=== PATIENT | male | born 1930 | race Caucasian/White ===

== ENCOUNTER 2017-05-25 23:52 | Inpatient (IN) ==
[2017-05-26] MEDS ORDERED: 0.9 % Sodium Chloride 1,000 ML IVC ONE (00:17)
[2017-05-26] MEDS ORDERED: *HR* HYDROmorphone 2 MG/ML SYRINGE IVP ONE (00:17)
[2017-05-26] MEDS ORDERED: Ondansetron 4 MG/2 ML VIAL IVP ONE (00:17)
--- NOTE | 2017-05-26 00:19 | Emergency Department Note ---
Disposition Clinical Impression: Femoral neck fracture Qualifiers: Encounter type: initial encounter Fracture type: closed Laterality: right Qualified Code(s): S72.001A - Fracture of unspecified part of neck of right femur, initial encounter for closed fracture Disposition: Admitted As Inpatient Condition: Fair Instructions: Hip Fracture (ED) Referrals: Unassigned,Provider [Non-Partnered Physician] - Forms: ED Satisfaction Letter Time of Disposition: 03:19 Fall HPI - General Chief Complaint: ED Fall Stated Complaint: FELL Time Seen by Provider: 05/26/17 00:15 Source: EMS, other Mode of arrival: private vehicle Limitations: no limitations Nursing Notes Reviewed: Yes Vital Signs Reviewed: Yes - History of Present Illness HPI Narrative: 86-year-old male presents to the emergency department from the [facility] status post fall. Patient reportedly tripped and fell landing on his right hip and now is complaining of right hip pain. Patient does appear mildly altered, however has baseline dementia which is unchanged per EMS. They are very familiar with this patient. Patient's only complaint is of right hip pain. He denies any neck pain, head injury, chest pain, dizziness, lightheadedness, shortness of breath. His only known drug allergies to Haldol. He has no additional injuries or complaints. Pt Subjective Complaint: fall Onset (ago): Just [employer] Fall From: standing Fall Witnessed: yes Place Fall Occurred: [facility] Loss of Consciousness: none Prolonged Down Time?: no Symptoms Prior to Fall: none Context: tripped/slipped Location of injury: hip Location of injury - extremities: Right: hip Severity: severe Quality: aching Associated symptoms (after fall): Reports: denies - Related Data Home Medications Medication Instructions Recorded Confirmed Atorvastatin Calcium [Lipitor] 80 mg PO DAILY 05/04/15 05/18/15 CarBAMazepine [Carbatrol] 300 mg PO BID 05/04/15 05/18/15 Clopidogrel [Plavix] 75 mg PO DAILY 05/04/15 05/18/15 Clotrimazole 1 appl TP BID 05/04/15 05/18/15 Cyanocobalamin (B-12) 100 mcg PO DAILY 05/04/15 05/18/15 Docusate [Colace] 200 mg PO BID 05/04/15 05/18/15 Ferrous Gluconate 325 mg PO DAILY 05/04/15 05/18/15 Ibuprofen [Motrin] 600 mg PO Q6HR 05/04/15 05/18/15 Ipratropium/Albuterol Neb [Duoneb] 3 ml IH TID 05/04/15 05/18/15 Isosorbide MONOnitrate (24 HR) 30 mg PO DAILY 05/04/15 05/18/15 [Imdur] Metoprolol [Lopressor] 12.5 mg PO BID 05/04/15 05/18/15 Pantoprazole Sodium [Protonix] 20 mg PO DAILY 05/04/15 05/18/15 Sertraline HCl [Zoloft] 50 mg PO DAILY 05/04/15 05/18/15 Previous Rx's Medication Instructions Recorded Ipratropium/Albuterol Neb [Duoneb] 3 ml IH [id number] inhsol 05/08/15 Quetiapine Fumarate [Seroquel] 25 mg PO BID tablet 05/08/15 Quetiapine Fumarate [Seroquel] 25 mg PO BID #60 tablet 05/08/15 Magnesium Citrate [Citroma] 296 ml PO ONCE #1 solution 05/18/15 Allergies Allergy/AdvReac Type Severity Reaction Status Date / Time haloperidol Allergy Confusion Verified 05/07/15 15:31 All systems ED: reviewed and negative except as stated. Constitutional: Denies: fever, chills Cardiovascular: Denies: chest pain Respiratory: Denies: cough, dyspnea Gastrointestinal: Denies: abdominal pain, nausea, vomiting Musculoskeletal: Reports: arthralgia. Denies: back pain, neck pain, joint swelling Integumentary: Denies: rash, abrasion, lesions Neurological: Denies: headache Psychiatric: Denies: anxiety, depression, suicidal thoughts, homicidal thoughts Fall PMH - Past Medical History Medical history: Reports: COPD, CVA, DVT, dementia, diabetes, hyperlipidemia, hypertension, myocardial infarction, osteoporosis, other Surgical history: Reports: no surgical history Psychiatric history: Reports: anxiety, depression, other - Social History Smoking Status: Former smoker Alcohol use: Reports: none Drug use: Reports: none Physical Exam - General Limitations: altered mental status (Baseline dementia.) General appearance: alert - Head Head exam: atraumatic, normocephalic, normal inspection - Eye Eye exam: Present: normal appearance, PERRL - Neck Neck exam: Present: normal inspection, full ROM, trachea midline - Chest Chest inspection: Present: normal inspection, symmetric chest wall rise - Respiratory Respiratory exam: Present: normal lung sounds bilaterally. Absent: respiratory distress - Cardiovascular Cardiovascular exam: Present: regular rate, normal rhythm, normal heart sounds - Abdominal Exam Abdominal exam: Present: soft, Non-Tender, normal bowel sounds. Absent: distention, guarding, rebound, rigidity - Expanded Lower Extremity Exam Hip/Pelvis exam: Present: tenderness (With palpation of the right lateral and anterior hip. Neurovascularly intact distally.). Absent: internal rotation, shortening - Back Exam Back exam: Present: normal inspection, full ROM. Absent: tenderness, vertebral tenderness - Neurological Exam Neurological exam: Present: alert, oriented X3 - Psychiatric Psychiatric exam: Present: normal affect, normal mood - Skin Skin exam: Present: warm, dry, intact, normal color Course Course Narrative: Discussed the patient's case with Dr. Castro, he accepts the patient for admission and Orthopedic consultation. [id number] Vital Signs Temperature 98 F 05/25/17 23:55 Pulse Rate 66 05/25/17 23:55 Respiratory Rate 20 05/25/17 23:55 Blood Pressure 132/78 05/25/17 23:55 O2 Sat by Pulse Oximetry 95 05/25/17 23:55 Temperature 98 F 05/25/17 23:55 Pulse Rate 92 05/26/17 01:57 Respiratory Rate 15 05/26/17 01:57 Blood Pressure 97/72 05/26/17 01:57 O2 Sat by Pulse Oximetry 94 05/26/17 01:57 Oxygen Delivery Oxygen Delivery Nasal Cannula Fall - Lab Data Lab results reviewed: Yes I reviewed the patient's lab results. Result diagrams: 05/26/17 00:30 05/26/17 00:30 Lab Results 05/26/17 05/26/17 05/26/17 Range/Units 00:30 00:30 00:30 WBC 5.7 (4.3-11.1) K/mcL RBC 5.57 H (4.19-5.50) M/mcL Hgb 15.5 (12.9-16.9) g/dL Hct 47.7 (37.5-50.1) % MCV 85.6 (83.0-100.0) fL MCH 27.8 L (28.0-33.3) pg MCHC 32.5 (31.6-35.5) g/dL RDW 14.6 H (11.5-14.5) % Plt Count 156 (140-400) K/mcL MPV 9.9 (9.4-12.4) fL Immature Gran % 0.2 (0-4) % Seg Neutrophils % 67.5 % Lymphocytes % 17.8 % Monocytes % 10.5 % Eosinophils % 3.5 % Basophils % 0.5 % Neutrophils # 3.9 (1.6-8.9) K/mcL Lymphocytes # 1.0 (0.6-4.6) K/mcL Monocytes # 0.6 (0.0-1.3) K/mcL Eosinophils # 0.2 (0.0-0.6) K/mcL Basophils # 0.0 (0.0-0.2) K/mcL PT 10.1 (9.4-12.1) Seconds INR 0.9 APTT 25.3 L (26.0-36.0) Seconds Sodium 140 (136-145) mEq/L Potassium 4.1 (3.5-4.5) mEq/L Chloride 106 (98-109) mEq/L Carbon Dioxide 27 (19-29) mEq/L BUN 19 (8-26) mg/dL Creatinine 1.27 H (0.72-1.25) mg/dL Est GFR ( Amer) > 60 (> 60) Est GFR (Non-Af Amer) 54 L (> 60) BUN/Creatinine Ratio 15 (6-26) Glucose 141 H (70-99) mg/dL Calculated Osmolality 295 (280-300) Calcium 9.3 (8.6-10.8) mg/dL Total Bilirubin 0.3 (0.2-1.2) mg/dL AST 15 (5-34) Units/L ALT 16 (0-55) Units/L Alkaline Phosphatase 72 (38-126) Units/L Serum Total Protein 7.0 (6.0-8.3) g/dL Albumin 3.5 (3.5-5.0) g/dL Globulin 3.5 (2.4-3.5) g/dL Albumin/Globulin Ratio 1.0 L (1.1-2.2) Urine Color (Yellow) Urine Clarity (Clear) Urine pH (5.0-8.0) pH Units Ur Specific [place] (1.010-1.025) Urine Protein (Neg-Trace) mg/dL Urine Glucose (UA) (Normal) mg/dL Urine Ketones (Negative) mg/dL Urine Blood (Negative) Urine Nitrite (Negative) Urine Bilirubin (Negative) Urine Urobilinogen (Normal) mg/dL Ur Leukocyte Esterase (Negative) Ur Culture Indicated? (NO) 05/26/17 Range/Units 00:48 WBC (4.3-11.1) K/mcL RBC (4.19-5.50) M/mcL Hgb (12.9-16.9) g/dL Hct (37.5-50.1) % MCV (83.0-100.0) fL MCH (28.0-33.3) pg MCHC (31.6-35.5) g/dL RDW (11.5-14.5) % Plt Count (140-400) K/mcL MPV (9.4-12.4) fL Immature Gran % (0-4) % Seg Neutrophils % % Lymphocytes % % Monocytes % % Eosinophils % % Basophils % % Neutrophils # (1.6-8.9) K/mcL Lymphocytes # (0.6-4.6) K/mcL Monocytes # (0.0-1.3) K/mcL Eosinophils # (0.0-0.6) K/mcL Basophils # (0.0-0.2) K/mcL PT (9.4-12.1) Seconds INR APTT (26.0-36.0) Seconds Sodium (136-145) mEq/L Potassium (3.5-4.5) mEq/L Chloride (98-109) mEq/L Carbon Dioxide (19-29) mEq/L BUN (8-26) mg/dL Creatinine (0.72-1.25) mg/dL Est GFR ( Amer) (> 60) Est GFR (Non-Af Amer) (> 60) BUN/Creatinine Ratio (6-26) Glucose (70-99) mg/dL Calculated Osmolality (280-300) Calcium (8.6-10.8) mg/dL Total Bilirubin (0.2-1.2) mg/dL AST (5-34) Units/L ALT (0-55) Units/L Alkaline Phosphatase (38-126) Units/L Serum Total Protein (6.0-8.3) g/dL Albumin (3.5-5.0) g/dL Globulin (2.4-3.5) g/dL Albumin/Globulin Ratio (1.1-2.2) Urine Color Yellow (Yellow) Urine Clarity Clear (Clear) Urine pH 6.0 (5.0-8.0) pH Units Ur Specific [place] 1.019 (1.010-1.025) Urine Protein Negative (Neg-Trace) mg/dL Urine Glucose (UA) Normal (Normal) mg/dL Urine Ketones Negative (Negative) mg/dL Urine Blood Negative (Negative) Urine Nitrite Negative (Negative) Urine Bilirubin Negative (Negative) Urine Urobilinogen Normal (Normal) mg/dL Ur Leukocyte Esterase Negative (Negative) Ur Culture Indicated? NO (NO) - Radiology Data Radiology results reviewed: Yes I reviewed the patient's radiology results.
[2017-05-26 00:36] LABS: Eosinophils % 3.5 %; Hematocrit 47.7 % (37.5-50.1); Hemoglobin 15.5 g/dL (12.9-16.9); Immature Granulocytes % 0.2 % (0-4); Lymphocytes % 17.8 %; Mean Corpuscular HGB Conc 32.5 g/dL (31.6-35.5); Mean Corpuscular Hemoglobin 27.8 pg (28.0-33.3); Mean Corpuscular Volume 85.6 fL (83.0-100.0); Mean Platelet Volume 9.9 fL (9.4-12.4); Monocytes % 10.5 %; Platelet Count 156 K/mcL (140-400); Red Blood Count 5.57 M/mcL (4.19-5.50); Red Cell Distribution Width 14.6 % (11.5-14.5); Segmented Neutrophils % 67.5 %
[2017-05-26 00:37] LABS: Basophils % 0.5 %; Eosinophils # 0.2 K/mcL (0.0-0.6); Monocytes # 0.6 K/mcL (0.0-1.3); Neutrophils # 3.9 K/mcL (1.6-8.9)
[2017-05-26 00:43] LABS: INR 0.9; Prothrombin Time 10.1 Seconds (9.4-12.1)
[2017-05-26 00:46] LABS: Activated Partial Thrombo Time 25.3 Seconds (26.0-36.0)
[2017-05-26 00:52] LABS: Alanine Aminotransferase 16 Units/L (0-55); Albumin 3.5 g/dL (3.5-5.0); Alkaline Phosphatase 72 Units/L (38-126); Aspartate Amino Transferase 15 Units/L (5-34); BUN/Creatinine Ratio 15 (6-26); Bilirubin,Total 0.3 mg/dL (0.2-1.2); Blood Urea Nitrogen 19 mg/dL (8-26); Calcium 9.3 mg/dL (8.6-10.8); Carbon Dioxide 27 mEq/L (19-29); Chloride 106 mEq/L (98-109); Globulin 3.5 g/dL (2.4-3.5); Glucose 141 mg/dL (70-99); Osmolality,Calculated 295 (280-300); Potassium 4.1 mEq/L (3.5-4.5); Sodium 140 mEq/L (136-145); eGFR For African Americans > 60 (> 60); eGFR For Non-African Americans 54 (> 60)
[2017-05-26 00:58] LABS: Bilirubin,Urine Negative (Negative); Blood,Urine Negative (Negative); Clarity,Urine Clear (Clear); Color,Urine Yellow (Yellow); Glucose,Urine (UA) Normal (Normal); Ketones,Urine Negative (Negative); Leukocyte Esterase,Urine Negative (Negative); Nitrite,Urine Negative (Negative); Protein,Urine Negative (Neg-Trace); Specific Gravity,Urine 1.019 (1.010-1.025); Urobilinogen,Urine Normal (Normal)
--- NOTE | 2017-05-26 01:19 | Emergency Department Note ---
Disposition Clinical Impression: Femoral neck fracture Qualifiers: Encounter type: initial encounter Fracture type: closed Laterality: right Qualified Code(s): S72.001A - Fracture of unspecified part of neck of right femur, initial encounter for closed fracture Disposition: Admitted As Inpatient Condition: Good Referrals: Unassigned,Provider [Non-Partnered Physician] - Forms: ED Satisfaction Letter Time of Disposition: 02:42 General Adult HPI - General Chief complaint: ED Fall Stated complaint: FELL Time Seen by Provider: 05/26/17 00:15 Source: EMS, other - History of Present Illness Pain Scale: 8 - Related Data Home Medications Medication Instructions Recorded Confirmed Atorvastatin Calcium [Lipitor] 80 mg PO DAILY 05/04/15 05/18/15 CarBAMazepine [Carbatrol] 300 mg PO BID 05/04/15 05/18/15 Clopidogrel [Plavix] 75 mg PO DAILY 05/04/15 05/18/15 Clotrimazole 1 appl TP BID 05/04/15 05/18/15 Cyanocobalamin (B-12) 100 mcg PO DAILY 05/04/15 05/18/15 Docusate [Colace] 200 mg PO BID 05/04/15 05/18/15 Ferrous Gluconate 325 mg PO DAILY 05/04/15 05/18/15 Ibuprofen [Motrin] 600 mg PO Q6HR 05/04/15 05/18/15 Ipratropium/Albuterol Neb [Duoneb] 3 ml IH TID 05/04/15 05/18/15 Isosorbide MONOnitrate (24 HR) 30 mg PO DAILY 05/04/15 05/18/15 [Imdur] Metoprolol [Lopressor] 12.5 mg PO BID 05/04/15 05/18/15 Pantoprazole Sodium [Protonix] 20 mg PO DAILY 05/04/15 05/18/15 Sertraline HCl [Zoloft] 50 mg PO DAILY 05/04/15 05/18/15 Previous Rx's Medication Instructions Recorded Ipratropium/Albuterol Neb [Duoneb] 3 ml IH [id number] inhsol 05/08/15 Quetiapine Fumarate [Seroquel] 25 mg PO BID tablet 05/08/15 Quetiapine Fumarate [Seroquel] 25 mg PO BID #60 tablet 05/08/15 Magnesium Citrate [Citroma] 296 ml PO ONCE #1 solution 05/18/15 Allergies Allergy/AdvReac Type Severity Reaction Status Date / Time haloperidol Allergy Confusion Verified 05/07/15 15:31 Past Medical History - Past Medical History Medical history: Reports: COPD, CVA, DVT, dementia, diabetes, hyperlipidemia, hypertension, myocardial infarction, osteoporosis, other Surgical history: Reports: no surgical history Psychiatric history: Reports: anxiety, depression, other - Social History Smoking Status: Former smoker Smokeless Tobacco Status: No Alcohol use: Reports: none Drug use: Reports: none Physical Exam - General General appearance: alert Course Vital Signs Temperature 98 F 05/25/17 23:55 Pulse Rate 66 05/25/17 23:55 Respiratory Rate 20 05/25/17 23:55 Blood Pressure 132/78 05/25/17 23:55 O2 Sat by Pulse Oximetry 95 05/25/17 23:55 Temperature 98 F 05/25/17 23:55 Pulse Rate 92 05/26/17 01:57 Respiratory Rate 15 05/26/17 01:57 Blood Pressure 97/72 05/26/17 01:57 O2 Sat by Pulse Oximetry 94 05/26/17 01:57 Oxygen Delivery Oxygen Delivery Nasal Cannula Medical Decision Making - Lab Data Result diagrams: 05/26/17 00:30 05/26/17 00:30 Lab Results 05/26/17 05/26/17 05/26/17 Range/Units 00:30 00:30 00:30 WBC 5.7 (4.3-11.1) K/mcL RBC 5.57 H (4.19-5.50) M/mcL Hgb 15.5 (12.9-16.9) g/dL Hct 47.7 (37.5-50.1) % MCV 85.6 (83.0-100.0) fL MCH 27.8 L (28.0-33.3) pg MCHC 32.5 (31.6-35.5) g/dL RDW 14.6 H (11.5-14.5) % Plt Count 156 (140-400) K/mcL MPV 9.9 (9.4-12.4) fL Immature Gran % 0.2 (0-4) % Seg Neutrophils % 67.5 % Lymphocytes % 17.8 % Monocytes % 10.5 % Eosinophils % 3.5 % Basophils % 0.5 % Neutrophils # 3.9 (1.6-8.9) K/mcL Lymphocytes # 1.0 (0.6-4.6) K/mcL Monocytes # 0.6 (0.0-1.3) K/mcL Eosinophils # 0.2 (0.0-0.6) K/mcL Basophils # 0.0 (0.0-0.2) K/mcL PT 10.1 (9.4-12.1) Seconds INR 0.9 APTT 25.3 L (26.0-36.0) Seconds Sodium 140 (136-145) mEq/L Potassium 4.1 (3.5-4.5) mEq/L Chloride 106 (98-109) mEq/L Carbon Dioxide 27 (19-29) mEq/L BUN 19 (8-26) mg/dL Creatinine 1.27 H (0.72-1.25) mg/dL Est GFR ( Amer) > 60 (> 60) Est GFR (Non-Af Amer) 54 L (> 60) BUN/Creatinine Ratio 15 (6-26) Glucose 141 H (70-99) mg/dL Calculated Osmolality 295 (280-300) Calcium 9.3 (8.6-10.8) mg/dL Total Bilirubin 0.3 (0.2-1.2) mg/dL AST 15 (5-34) Units/L ALT 16 (0-55) Units/L Alkaline Phosphatase 72 (38-126) Units/L Serum Total Protein 7.0 (6.0-8.3) g/dL Albumin 3.5 (3.5-5.0) g/dL Globulin 3.5 (2.4-3.5) g/dL Albumin/Globulin Ratio 1.0 L (1.1-2.2) Urine Color (Yellow) Urine Clarity (Clear) Urine pH (5.0-8.0) pH Units Ur Specific [place] (1.010-1.025) Urine Protein (Neg-Trace) mg/dL Urine Glucose (UA) (Normal) mg/dL Urine Ketones (Negative) mg/dL Urine Blood (Negative) Urine Nitrite (Negative) Urine Bilirubin (Negative) Urine Urobilinogen (Normal) mg/dL Ur Leukocyte Esterase (Negative) Ur Culture Indicated? (NO) 05/26/17 Range/Units 00:48 WBC (4.3-11.1) K/mcL RBC (4.19-5.50) M/mcL Hgb (12.9-16.9) g/dL Hct (37.5-50.1) % MCV (83.0-100.0) fL MCH (28.0-33.3) pg MCHC (31.6-35.5) g/dL RDW (11.5-14.5) % Plt Count (140-400) K/mcL MPV (9.4-12.4) fL Immature Gran % (0-4) % Seg Neutrophils % % Lymphocytes % % Monocytes % % Eosinophils % % Basophils % % Neutrophils # (1.6-8.9) K/mcL Lymphocytes # (0.6-4.6) K/mcL Monocytes # (0.0-1.3) K/mcL Eosinophils # (0.0-0.6) K/mcL Basophils # (0.0-0.2) K/mcL PT (9.4-12.1) Seconds INR APTT (26.0-36.0) Seconds Sodium (136-145) mEq/L Potassium (3.5-4.5) mEq/L Chloride (98-109) mEq/L Carbon Dioxide (19-29) mEq/L BUN (8-26) mg/dL Creatinine (0.72-1.25) mg/dL Est GFR ( Amer) (> 60) Est GFR (Non-Af Amer) (> 60) BUN/Creatinine Ratio (6-26) Glucose (70-99) mg/dL Calculated Osmolality (280-300) Calcium (8.6-10.8) mg/dL Total Bilirubin (0.2-1.2) mg/dL AST (5-34) Units/L ALT (0-55) Units/L Alkaline Phosphatase (38-126) Units/L Serum Total Protein (6.0-8.3) g/dL Albumin (3.5-5.0) g/dL Globulin (2.4-3.5) g/dL Albumin/Globulin Ratio (1.1-2.2) Urine Color Yellow (Yellow) Urine Clarity Clear (Clear) Urine pH 6.0 (5.0-8.0) pH Units Ur Specific [place] 1.019 (1.010-1.025) Urine Protein Negative (Neg-Trace) mg/dL Urine Glucose (UA) Normal (Normal) mg/dL Urine Ketones Negative (Negative) mg/dL Urine Blood Negative (Negative) Urine Nitrite Negative (Negative) Urine Bilirubin Negative (Negative) Urine Urobilinogen Normal (Normal) mg/dL Ur Leukocyte Esterase Negative (Negative) Ur Culture Indicated? NO (NO) Attestation Statement - Attestation Attestation: For this encounter, I have reviewed the [employer] or PA documentation, treatment plan, and medical decision making; and I have had face to face time with this patient. 86 year old male from [facility] the [place], papa fell out of bed and possibly hit his head and has an obvisou fracture on right hip. We will image his hip and head and neck and likely admit to medicine with consult to ortho. neruovascualr intact at this time.
[2017-05-26] MEDS ORDERED: Ondansetron 4 MG/2 ML VIAL IVP PRN (05:21)
[2017-05-26] MEDS ORDERED: *HR* HYDROcodone/Acet 5/325 mg TABLET PO PRN (05:21)
[2017-05-26] MEDS ORDERED: Acetaminophen 325 MG TABLET PO PRN (05:21)
[2017-05-26] MEDS ORDERED: Naloxone 0.4 MG/ML INJ IVP PRN (05:21)
--- NOTE | 2017-05-26 05:31 | Internal Med History&Physical ---
<Pamela Salamanca - Last Filed: 05/26/17 05:37> Date of Encounter: 05/26/17 Time of Encounter: 04:30 Assessment and Plan (1) Femoral neck fracture Current visit: Yes Status: Acute - Right hip pain after a fall and right hip X-ray revealed acute right femoral neck fracture. - Prn pain medication for pain control. - NPO now. - Will consult orthopedic surgery and appreciate further evaluation and possible intervention. - Admit to hospital for close monitor, pain control and potential need of surgical intervention. Total time spent on admission: 40 minutes. Qualifiers: Encounter type: initial encounter Fracture type: closed Laterality: right Qualified Code(s): S72.001A - Fracture of unspecified part of neck of right femur, initial encounter for closed fracture (2) COPD (chronic obstructive pulmonary disease) Current visit: No Status: Chronic - Continue bronchodilator and supplemental oxygen. Qualifiers: COPD type: unspecified COPD Qualified Code(s): J44.9 - Chronic obstructive pulmonary disease, unspecified (3) Hypertension Current visit: Yes Status: Chronic - Will resume home dose antihypertensive regimen once med rec is confirmed. Qualifiers: Hypertension type: essential hypertension Qualified Code(s): I10 - Essential (primary) hypertension (4) Dementia Current visit: No Status: Chronic - Per EMS who are familiar with patient, patient was at his baseline dementia upon arrival to ED. Qualifiers: Dementia type: unspecified type Dementia behavioral disturbance: without behavioral disturbance Qualified Code(s): F03.90 - Unspecified dementia without behavioral disturbance (5) History of stroke Current visit: Yes Status: Chronic Internal Medicine - H&P: HPI Chief complaint: Right hip pain Admitted From: Emergency Dept Plans for Post Hospital Care: [facility] History of present illness: Mr. Mackey is a 86 year old male with PMH of COPD, HTN, history of stroke with legal blindness. Patient was sent from [place] [facility] for right hip pain after a fall from the bed. On the encounter, patient is hypersomnolent after receiving Dilaudid in ED and unable to answer any of my questions and no family member at bedside. Therefore much of history was obtained from review of medical record. Per ED note, patient only complained of right hip pain and denied any neck pain, head injury, chest pain, dizziness, lightheadedness, shortness of breath. Per EMS who are very familiar with patient, patient is at his baseline dementia. CT head and cervical spine found no acute abnormality. Right hip X-ray found acute right femoral neck fracture. Past Med Surg Social Fam HX - Past Medical History Source: old records reviewed Medical history: COPD, CVA, DVT, dementia, diabetes, hyperlipidemia, hypertension, myocardial infarction, osteoporosis, other Psychiatric history: anxiety, depression, other - Past Surgical History Surgical History: other (Open heart surgery, back surgery) - Social History Smoking Status: Former smoker Smokeless Tobacco Status: No Alcohol use: none Drug use: none Internal Medicine - H&P: Meds Atorvastatin Calcium [Lipitor] 80 mg PO DAILY 05/04/15 [History] CarBAMazepine [Carbatrol] 300 mg PO BID 05/04/15 [History] Clopidogrel [Plavix] 75 mg PO DAILY 05/04/15 [History] Clotrimazole 1 appl TP BID 05/04/15 [History] Cyanocobalamin (B-12) 100 mcg PO DAILY 05/04/15 [History] Docusate [Colace] 200 mg PO BID 05/04/15 [History] Ferrous Gluconate 325 mg PO DAILY 05/04/15 [History] Ibuprofen [Motrin] 600 mg PO Q6HR 05/04/15 [History] Ipratropium/Albuterol Neb [Duoneb] 3 ml IH TID 05/04/15 [History] Isosorbide MONOnitrate (24 HR) [Imdur] 30 mg PO DAILY 05/04/15 [History] Metoprolol [Lopressor] 12.5 mg PO BID 05/04/15 [History] Pantoprazole Sodium [Protonix] 20 mg PO DAILY 05/04/15 [History] Sertraline HCl [Zoloft] 50 mg PO DAILY 05/04/15 [History] Ipratropium/Albuterol Neb [Duoneb] 3 ml IH [id number] inhsol 05/08/15 [Rx] Quetiapine Fumarate [Seroquel] 25 mg PO BID tablet 05/08/15 [Rx] Quetiapine Fumarate [Seroquel] 25 mg PO BID #60 tablet 05/08/15 [Rx] Magnesium Citrate [Citroma] 296 ml PO ONCE #1 solution 05/18/15 [Rx] 3 Allergy/AdvReac Type Severity Reaction Status Date / Time haloperidol Allergy Confusion Verified 05/07/15 15:31 ROS unobtainable: due to mental status - Constitutional Vitals: Temp Pulse Resp BP Pulse Ox 98 F 99 18 115/101 90 05/25/17 23:55 05/26/17 04:53 05/26/17 04:53 05/26/17 04:53 05/26/17 04:53 General appearance: Present: A&O X 0, no acute distress Exam: Patient is hypersomnolent and unable to answer any questions appropriately. - Head Head exam: Present: atraumatic, normocephalic - ENT ENT exam: Present: mucous membranes dry - Neck Neck exam general surgery: Present: supple, trachea midline. Absent: lymphadenopathy - Respiratory Respiratory exam: Present: CTAB. Absent: accessory muscle use, rales, rhonchi, wheezes - Cardiovascular Cardiovascular exam: Present: RRR, +S1, +S2. Absent: diastolic murmur, gallop, rubs, systolic murmur - GI/Abdominal GI/Abdominal exam: Present: normal bowel sounds, soft, no peritoneal signs. Absent: distended, tenderness - Extremities Exam Extremities exam: Present: warm, radial pulses palpable and symmetrical. Absent : calf tenderness, cyanotic, pedal edema - Neurological Exam Neurological exam: Absent: pronater drift, facial droop Additional comments: Unable to full assess given patient is not answering questions nor following commands. - Skin Skin exam: Present: dry, intact, warm Internal Med - H&P Results - Labs CBC & Chem 7: 05/26/17 00:30 05/26/17 00:30 <Wang Castro - Last Filed: 05/26/17 08:00> Date of Encounter: 05/26/17 Internal Medicine - H&P: HPI History of present illness: Mr. Mackey is a 86 year old male All Systems PM: A 10-system review of systems was performed and is negative for pertinent findings except as documented above in the HPI. - Constitutional Vitals: Temp Pulse Resp BP Pulse Ox 98.6 F 98 24 135/65 98 05/26/17 07:08 05/26/17 07:08 05/26/17 07:08 05/26/17 07:08 05/26/17 07:08 Internal Med - H&P Results - Labs CBC & Chem 7: 08/25/17 00:30 05/26/17 00:30 - Attending Attestation I examined this patient and my medical decision-making was reviewed with the Resident Physician, Dr. Pamela Salamanca. I agree with the documented findings, disposition and treatment plan as described except to the extent set forth below. I have independently obtained history and examined the patient and my findings are summarized below: Patient cannot provide history due to advanced dementia He is in no acute distress occasionally moaning and groaning in pain. Heart is regular, lungs are clear. Right lower extremity is shortened and externally rotated X-ray of the hip reveals right femoral neck fracture Plan: We will admit the patient for acute right femoral neck fracture, we will provide pain control, DVT prophylaxis, consult orthopedics. The patient has multiple comorbidities and he has high risk for surgery, [facility] and therefore will consult palliative care to assess goals of care. He is at high risk for morbidity, mortality and complications due to need for surgery, poor mental status and treatment with IV controlled substances.
[2017-05-26] MEDS: *HR* Morphine 2 MG/ML SYRINGE IVP PRN ×4 (08:52→22:03)
--- NOTE | 2017-05-26 08:55 | Palliative - Consult Note ---
Date of Encounter: 05/26/17 Time of Encounter: 08:25 - Assessment and Plan (1) Dementia Current Visit: No Status: Chronic Assessment and plan: History of dementia, however he does eat 7 c level. Patient is still ambulatory still able to assist in some of his activities of daily living at this point in time. pLan per hospitalist team. Qualifiers: Dementia type: unspecified type Dementia behavioral disturbance: without behavioral disturbance Qualified Code(s): F03.90 - Unspecified dementia without behavioral disturbance (2) COPD (chronic obstructive pulmonary disease) Current Visit: No Status: Chronic Assessment and plan: Chronic, patient on oxygen and bronchodilator support. Plan per hospitalist team Qualifiers: COPD type: unspecified COPD Qualified Code(s): J44.9 - Chronic obstructive pulmonary disease, unspecified (3) Counseling regarding advanced care planning and goals of care Current Visit: No Status: Acute Assessment and plan: Patient's CODE STATUS is DNR comfort care this was established to being seen by palliative care, but confirmed on discussion with family. The patient does have a medical power of commercial attorney Shanti Jackman, and the paperwork is on the chart from the [facility], however Ms. Jackman has passed. prashanth Walker at [phone], is his daughter, the only child. And is his decision maker. He is awaiting talking to orthopedic surgery Ryer to making any full final decisions regarding fixing the hip. She did confirm the CODE STATUS she is here to have the hip evaluated by orthopedic surgery for Ms. Mackey to get their recommendations. (4) Femoral neck fracture Current Visit: Yes Status: Acute Assessment and plan: Right femoral neck fracture per radiology. Awaiting orthopedic consultation. Since daughter who is his medical decision maker is awaiting their recommendations. Regards to pain management I agree with using morphine there is no evidence that the patient has been on opioids start his current outpatient meds list. Therefore given his overall age and health, I would recommend staying with currently prescribed. The patient apparently does have a history of constipation, I will place him on some regimen as he is getting opioids at this time. Qualifiers: Encounter type: initial encounter Fracture type: closed Laterality: right Qualified Code(s): S72.001A - Fracture of unspecified part of neck of right femur, initial encounter for closed fracture Palliative-CN HPI - Data of Consult Patient: known to practice within the last 3 years Requesting Physician: Gabe Myaer MD [facility] - Consult Narrative Palliative Care/Comfort Measures: Palliative care History of present illness: Mr. Mackey is a 86 year old male With a history of COPD hypertension history of stroke legal blindness and dementia. He is a long-term resident at the [facility] and was transferred after right hip pain from a fall from the bed. He is unable to give any history, but the patient also has dementia currently at baseline. The history comes from the medical record and from discussion with the patient's daughter. As already noted the patient's a long-term resident at the [facility]. He is able to get up and get around, according to his daughter he has been falling more recently. He is able to assist with his own dressing although he requires assistance with this. We will go to the bathroom however this is becoming more and more troublesome and requiring more and more help with this pill able to at least feed himself to some degree. Oertli the patient is still somnolent from medication he was given in the emergency department and is not verbal. CC: Gabe Mayer MD Right hip pain, femoral neck fracture. Past Med Surg Social Fam HX - Past Medical History Medical history: COPD, CVA, DVT, dementia, diabetes, hyperlipidemia, hypertension, myocardial infarction, osteoporosis, other Psychiatric history: anxiety, depression, other - Past Surgical History Surgical History: other (Open heart surgery, back surgery) - Social History Smoking Status: Former smoker Smokeless Tobacco Status: No Alcohol use: none Drug use: none Medications and Allergies Atorvastatin Calcium [Lipitor] 80 mg PO DAILY 05/04/15 [History] CarBAMazepine [Carbatrol] 300 mg PO BID 05/04/15 [History] Clopidogrel [Plavix] 75 mg PO DAILY 05/04/15 [History] Clotrimazole 1 appl TP BID 05/04/15 [History] Cyanocobalamin (B-12) 100 mcg PO DAILY 05/04/15 [History] Docusate [Colace] 200 mg PO BID 05/04/15 [History] Ferrous Gluconate 325 mg PO DAILY 05/04/15 [History] Ibuprofen [Motrin] 600 mg PO Q6HR 05/04/15 [History] Ipratropium/Albuterol Neb [Duoneb] 3 ml IH TID 05/04/15 [History] Isosorbide MONOnitrate (24 HR) [Imdur] 30 mg PO DAILY 05/04/15 [History] Metoprolol [Lopressor] 12.5 mg PO BID 05/04/15 [History] Pantoprazole Sodium [Protonix] 20 mg PO DAILY 05/04/15 [History] Sertraline HCl [Zoloft] 50 mg PO DAILY 05/04/15 [History] Ipratropium/Albuterol Neb [Duoneb] 3 ml IH [id number] inhsol 05/08/15 [Rx] Quetiapine Fumarate [Seroquel] 25 mg PO BID tablet 05/08/15 [Rx] Quetiapine Fumarate [Seroquel] 25 mg PO BID #60 tablet 05/08/15 [Rx] Magnesium Citrate [Citroma] 296 ml PO ONCE #1 solution 05/18/15 [Rx] 3 Allergy/AdvReac Type Severity Reaction Status Date / Time haloperidol Allergy Confusion Verified 05/07/15 15:31 ROS unobtainable: due to mental status Palliative Care-Exam - Constitutional Vitals: Temp Pulse Resp BP Pulse Ox 98.6 F 98 24 135/65 98 05/26/17 07:08 05/26/17 07:08 05/26/17 07:08 05/26/17 07:08 05/26/17 07:08 General appearance: Present: no acute distress - Head Head Exam: Present: atraumatic, normal inspection - Eye Eye exam: Present: normal appearance - Respiratory Respiratory exam: Present: CTAB - Cardiovascular Cardiovascular exam: Present: RRR - GI/Abdominal Exam GI/Abdominal exam: Present: firm, normal bowel sounds. Absent: tenderness - Extremities Exam Extremities exam: Present: tenderness. Absent: normal inspection (Right leg is externally rotated and shortened) - Neurological Exam Neurological exam: Present: altered - Psychiatric Psychiatric exam: Absent: agitated, anxious - Skin Skin exam: Present: dry, warm Internal Medicine - CN: Reslt - Labs CBC & Chem 7: 05/26/17 00:30 05/26/17 00:30 - ABG Interpretation ABG results: PT/INR, D-dimer PT 10.1 Seconds (9.4-12.1) 05/26/17 00:30 Consult Discharge Plan - Plan [facility]errals: [facility],PCP [Primary Care Provider] - Palliative Quality Palliative Quality: Screen for Code Status: Yes, Screen for Goals of Care: Yes, Screen for Pain: Yes, If Pain Regimen Started, Initiate Bowel Regimen: Yes, Screen for Nausea/Vomitting: Yes Code Status: 05/26/17 05:21 Resuscitation Status: Active [RES] Routine Comment: Resuscitation Status: Full Code 05/26/17 08:01 DNR [Resuscitation Status: Active] [RES] Routine Comment: Resuscitation Status: DNR-Comfort Care
[2017-05-26] MEDS: Ipratropium/Albuterol Neb 3 ML IH SCH ×3 (09:44→22:23)
--- NOTE | 2017-05-26 14:07 | Event Note ---
Date of Encounter: 05/26/17 Time of Encounter: 09:50 Patient is currently very somnolent. Unable to answer any questions. Awaiting evaluation by orthopedics. Given his advanced age and dementia, palliative care has been consulted to discuss goals of care. Patient is DNR comfort care. We will await orthopedic evaluation and recommendations and discussed with family about further options. Continue supportive care and pain control with narcotic medications as needed.
[2017-05-26] MEDS ORDERED: *HR* Enoxaparin 30 MG/0.3 ML SYRINGE SQ SCH (18:00)
--- NOTE | 2017-05-26 18:36 | Orthopedic Consult Note ---
Date of Encounter: 05/26/17 Time of Encounter: 18:30 History of Present Illness Chief complaint: Right hip pain HPI: Mr. Mackey is a 86 year old male who reportedly fell at the [facility] where he is a permanent resident. The patient apparently sustained several falls recently. He does have a history of dementia. Patient is unable to give any information. Discussion has been with the patient's daughter who is next of kin. For complete history and physical data please refer to the formal medical chart. Orthopedic examination is markedly limited due to the patient's relatively uncooperative nature at this time. He does have pain with any attempts examining the right hip. I reviewed x-rays. These reveal a very low basicervical or more of an intertrochanteric type fracture of the right hip. There is varus angulation noted. This was read as a femoral neck fracture by radiology, I disagree with this interpretation as it has an impact on how the fractures treated. Impression: Intertrochanteric fracture right hip with varus angulation Plan: Had a extended discussion with the patient's family regarding the fracture and the treatment options. Basically this would be 3. The first would be nonoperative management which would require bed rest for some period of time with the possibility of the fracture displacing further and requiring surgical intervention at another date. The second would be to stabilize the fracture in 1 of 2 ways. First would be percutaneous screw fixation which should be a potentially weaker construct then the second surgical fixation which would be with an intramedullary nail. The third option would be some form of a hemiarthroplasty though this would require a revision type stem due to the extremely low location of the fracture. I do not recommend this due to the patient's potential for adverse effects postop. This would require some limitations but I am not sure the patient would be able to follow with this level of dementia. After much discussion we agreed upon proceeding with intramedullary nailing as both a palliative and as a definitive treatment. This will allow him to begin immediate ambulation with weightbearing as tolerated with limited limitations. We discussed procedure at length including the potential complications of bleeding, infection, blood clots, nerve injury, nonunion, avascular necrosis, and leg length or rotational deformities. The daughter who is the next of kin signed informed consent for the surgical procedure. There is no current DURABLE POWER OF ASSISTANT ASSOCIATE FULL PROFESSOR due to the of the previous DPOA. I have scheduled surgery for tomorrow when operating time is available. Thank you very much for allowing me to care for Mr. Mackey. Sincerely, Bandar Patel,DO Past Med Surg Social Fam HX - Past Medical History Medical history: COPD, CVA, DVT, dementia, diabetes, hyperlipidemia, hypertension, myocardial infarction, osteoporosis, other Psychiatric history: anxiety, depression, other - Past Surgical History Surgical History: other - Social History Smoking Status: Former smoker Smokeless Tobacco Status: No Alcohol use: none Drug use: none Medications and Allergies Atorvastatin Calcium [Lipitor] 80 mg PO DAILY 05/04/15 [History] CarBAMazepine [Carbatrol] 300 mg PO BID 05/04/15 [History] Clopidogrel [Plavix] 75 mg PO DAILY 05/04/15 [History] Clotrimazole 1 appl TP BID 05/04/15 [History] Cyanocobalamin (B-12) 100 mcg PO DAILY 05/04/15 [History] Docusate [Colace] 200 mg PO BID 05/04/15 [History] Ferrous Gluconate 325 mg PO DAILY 05/04/15 [History] Ibuprofen [Motrin] 600 mg PO Q6HR 05/04/15 [History] Ipratropium/Albuterol Neb [Duoneb] 3 ml IH TID 05/04/15 [History] Isosorbide MONOnitrate (24 HR) [Imdur] 30 mg PO DAILY 05/04/15 [History] Metoprolol [Lopressor] 12.5 mg PO BID 05/04/15 [History] Pantoprazole Sodium [Protonix] 20 mg PO DAILY 05/04/15 [History] Sertraline HCl [Zoloft] 50 mg PO DAILY 05/04/15 [History] Ipratropium/Albuterol Neb [Duoneb] 3 ml IH [id number] inhsol 05/08/15 [Rx] Quetiapine Fumarate [Seroquel] 25 mg PO BID tablet 05/08/15 [Rx] Quetiapine Fumarate [Seroquel] 25 mg PO BID #60 tablet 05/08/15 [Rx] Magnesium Citrate [Citroma] 296 ml PO ONCE #1 solution 05/18/15 [Rx] 3 Allergy/AdvReac Type Severity Reaction Status Date / Time haloperidol Allergy Confusion Verified 05/07/15 15:31 All Systems Reviewed: A 10-system review of systems was performed and is negative for pertinent findings except as documented above in the HPI. Physical Exam - Constitutional Vitals: Temp Pulse Resp BP Pulse Ox 99.1 F 87 16 143/76 95 05/26/17 14:12 05/26/17 14:12 05/26/17 16:11 05/26/17 14:12 05/26/17 16:11 Results - Labs Result Diagrams: 05/26/17 00:30 05/26/17 00:30 Labs: Abnormal lab results RBC 5.57 M/mcL (4.19-5.50) H 05/26/17 00:30 MCH 27.8 pg (28.0-33.3) L 05/26/17 00:30 RDW 14.6 % (11.5-14.5) H 05/26/17 00:30 APTT 25.3 Seconds (26.0-36.0) L 05/26/17 00:30 Creatinine 1.27 mg/dL (0.72-1.25) H 05/26/17 00:30 Est GFR (Non-Af Amer) 54 (> 60) L 05/26/17 00:30 Glucose 141 mg/dL (70-99) H 05/26/17 00:30 POC Glucose 146 (58-89) H 05/26/17 07:41 Albumin/Globulin Ratio 1.0 (1.1-2.2) L 05/26/17 00:30 All other labs normal. - Diagnostic results Hip x-ray: image reviewed Consult Discharge Plan - Plan [facility]errals: [facility] [Primary Care Provider] -
[2017-05-26] MEDS: 0.9 % Sodium Chloride 1,000 ML IVC SCH (18:44)
[2017-05-26] MEDS ORDERED: Bisacodyl 10 MG RECTAL SUPPOSITORY RC SCH (21:00)
[2017-05-27] MEDS: *HR* Morphine 2 MG/ML SYRINGE IVP PRN ×2 (02:16→06:25)
[2017-05-27] MEDS: Ipratropium/Albuterol Neb 3 ML IH SCH ×2 (04:24→09:39)
[2017-05-27] MEDS: 0.9 % Sodium Chloride 1,000 ML IVC SCH (08:44)
--- NOTE | 2017-05-27 11:49 | Internal Med Progress Note ---
Date of Encounter: 05/27/17 Time of Encounter: 10:30 - Assessment and plan (1) Femoral neck fracture Current Visit: Yes Status: Acute Assessment and plan: Evaluated by orthopedics. After discussing with family plan to go ahead with intramedullary nailing. Evaluated 2-D echocardiogram. Shows a normal ejection fraction with normal wall motion. At this point patient is at intermediate risk for cardiac complications from currently planned surgery. Continue supportive care and physical therapy postsurgery. Pain control. Qualifiers: Encounter type: initial encounter Fracture type: closed Laterality: right Qualified Code(s): S72.001A - Fracture of unspecified part of neck of right femur, initial encounter for closed fracture (2) COPD (chronic obstructive pulmonary disease) Current Visit: Yes Status: Chronic Assessment and plan: No acute exacerbation. Will change bronchodilators to as needed use. Qualifiers: COPD type: unspecified COPD Qualified Code(s): J44.9 - Chronic obstructive pulmonary disease, unspecified (3) Dementia Current Visit: Yes Status: Chronic Assessment and plan: At risk for delirium. Qualifiers: Dementia type: unspecified type Dementia behavioral disturbance: without behavioral disturbance Qualified Code(s): F03.90 - Unspecified dementia without behavioral disturbance (4) History of stroke Current Visit: Yes Status: Chronic (5) Hypertension Current Visit: Yes Status: Chronic Assessment and plan: Blood pressure is well controlled Qualifiers: Hypertension type: essential hypertension Qualified Code(s): I10 - Essential (primary) hypertension - Subjective Interval history: Patient is currently somnolent. Wakes up but not answering questions. Moans occasionally. Plan for surgery later today. - Constitutional Vitals: Temp Pulse Resp BP Pulse Ox 97.6 F 98 20 100/49 90 05/27/17 11:21 05/27/17 11:21 05/27/17 11:21 05/27/17 11:21 05/27/17 11:21 General appearance: Present: A&O X 0. Absent: answers questions appropriately - Neck Neck exam general surgery: Present: supple, trachea midline. Absent: lymphadenopathy - Respiratory Respiratory exam: Present: CTAB. Absent: accessory muscle use, rales, rhonchi, wheezes - Cardiovascular Cardiovascular exam: Present: RRR, +S1, +S2. Absent: diastolic murmur, gallop, rubs, systolic murmur - GI/Abdominal GI/Abdominal exam: Present: normal bowel sounds, soft, no peritoneal signs. Absent: distended, tenderness - Extremities Exam Extremities exam: Present: tenderness (Right hip), warm, radial pulses palpable and symmetrical. Absent: pedal edema Internal Medicine: Result - Labs CBC & Chem 7: 05/26/17 00:30 05/26/17 00:30 - ABG Interpretation ABG results: PT/INR, D-dimer PT 10.1 Seconds (9.4-12.1) 05/26/17 00:30 Consult Discharge Plan - Plan Referrals: [facility] [Primary Care Provider] -
[2017-05-27] MEDS ORDERED: ceFAZolin 2,000 MG in D5% in Water 100 ML IVPB ONE (12:00)
[2017-05-27] MEDS ORDERED: Ipratropium/Albuterol Neb 3 ML IH PRN ×2 (13:44→18:51)
[2017-05-27] MEDS ORDERED: *HR* FentaNYL (PF) 100 MCG/2 ML VIAL ONE ×2 (14:25→16:58)
[2017-05-27] MEDS ORDERED: *HR* Rocuronium Bromide 50 MG/5 ML VIAL ONE (14:25)
[2017-05-27] MEDS ORDERED: *HR* Propofol 200 MG/20 ML VIAL IVP ONE (14:25)
[2017-05-27] MEDS ORDERED: Lidocaine -MPF 2% 2 ML VIAL ONE (14:25)
--- NOTE | 2017-05-27 14:43 | Anesthesia Evaluation PreOp ---
Date of Encounter: 05/27/17 Time of Encounter: 14:41 - Past History Planned Operation: IM nail R hip Cardiac History: MD, HTN, Cardiac Surgery, Other (EF 60%) Pulmonary History: COPD BELT SEWER History: CVA, Other (dementia) Other Medical History: GERD Anesthesia History: No Prior Anesthetic Complications (per daughter), Past Anesthesia (Open heart surgery, back surgery)) Alcohol Use: none Drug use: none Medications and Allergies Clopidogrel [Plavix] 75 mg PO DAILY 05/04/15 [History] Cyanocobalamin (B-12) 100 mcg PO DAILY 05/04/15 [History] Sertraline HCl [Zoloft] 50 mg PO DAILY 05/04/15 [History] Acetaminophen [Tylenol] 650 mg PO QAM AND QHS 05/26/17 [History] Acetaminophen [Tylenol] 975 mg PO Q8H PRN 05/26/17 [History] Aspirin Enteric Coated [Aspirin EC] 81 mg PO DAILY 05/26/17 [History] Atorvastatin Calcium [Lipitor] 20 mg PO HS 05/26/17 [History] Bisacodyl [Dulcolax] 10 mg RC Q48H PRN 05/26/17 [History] Cholecalciferol (D-3) [Vitamin D] 3,000 unit PO DAILY 05/26/17 [History] Ipratropium/Albuterol Sulfate [Combivent Respimat Inhal Vermilion] 1 puff IH QID PRN 05/26/17 [History] LORazepam [Ativan] 0.5 mg PO BID PRN 05/26/17 [History] Magnesium Hydroxide [Milk of Magnesia] 2,400 mg PO DAILY PRN 05/26/17 [History] Memantine HCl 10 mg PO BID 05/26/17 [History] Menthol/Zinc Oxide [Calmoseptine Ointment Packet] 1 appl TP BID PRN 05/26/17 [ History] Methyl Salicylate/Menthol [Arthritis Hot Pain Relief Crm] 1 appl TP BID [History] Multivitamin-Min/Iron/FA/Vit K [Multi-Day Plus Minerals Tablet] 1 each PO DAILY 05/26/17 [History] Naproxen [EC-Naprosyn] 375 mg PO BID PRN 05/26/17 [History] Omeprazole [PriLOSEC] 20 mg PO DAILY 05/26/17 [History] Ondansetron HCl [Zofran] 4 mg PO TID PRN 05/26/17 [History] Quetiapine Fumarate [Seroquel] 75 mg PO QAM 05/26/17 [History] Quetiapine Fumarate [Seroquel] 150 mg PO HS 05/26/17 [History] Sennosides/Docusate Sodium [Senna Plus] 2 each PO BID 05/26/17 [History] Tramadol HCl [Ultram] 25 mg PO QID PRN 05/26/17 [History] 3 Allergy/AdvReac Type Severity Reaction Status Date / Time haloperidol Allergy Confusion Verified 05/07/15 15:31 risperidone AdvReac See Verified 05/26/17 20:59 Comments - Meds/Allergy Pre-op Review Medications Reviewed: Yes Allergies Reviewed: Yes Beta Blockers on Current Med List: No Anesthesia Results - Labs 05/26/17 00:30 05/26/17 00:30 - Imaging EKG: report reviewed (SR with sinus arrhythmia) Anesthesia Exam Vital Signs/O2 Sat, Most Current Temp Pulse Resp BP Pulse Ox 97.6 F 98 20 100/49 90 05/27/17 11:21 05/27/17 11:21 05/27/17 11:21 05/27/17 11:21 05/27/17 11:21 Height: 1.78m Weight: 75kg NPO (# of Hours): >8 - HEENT Pupil (Motor): Pupils equal Mallampati: II Teeth: Edentulous Oral Opening: Greater than 3 - BELT SEWER LOC: Confused - Cardiac Rhythm: Regular - Pulmonary Breath Sounds: bilateral Clear Respiratory Effort: Symmetrical Anesthesia Assess/Plan ASA Score: 3 (HTN, COPD, CVA, DM, Dementia) Modified [place] Scale for Level of Consciousness: Cooperative, oriented, and tranquil Anesthetic Plan: General (pt does not communicate, hx obtained from daughter and consent obtained, r/b/a discussed, questions answered) Monitoring Plan: Standard Monitors Recovery Plan: PACU
[2017-05-27] MEDS ORDERED: Albuterol 2.5 MG/3 ML NEBULIZER IH ONE ×2 (15:34→18:51)
[2017-05-27] MEDS ORDERED: *HR* HYDROmorphone (PF) 1 MG/ML SYRINGE IVP PRN ×2 (15:34→18:51)
[2017-05-27] MEDS ORDERED: Ondansetron 4 MG/2 ML VIAL IVP ONE ×2 (15:34→18:51)
[2017-05-27] MEDS ORDERED: Naloxone 0.4 MG/ML INJ IVP PRN ×3 (15:34→18:51)
[2017-05-27] MEDS ORDERED: Ipratropium Neb 0.5 MG NEBULIZER IH ONE ×2 (15:34→18:51)
[2017-05-27] MEDS ORDERED: Ringers Solution, Lactated 1,000 ML IVC SCH (15:45)
[2017-05-27] MEDS ORDERED: Ondansetron 4 MG/2 ML VIAL ONE (16:26)
[2017-05-27] MEDS ORDERED: Dexamethasone 4 MG/ML VIAL ONE (16:26)
[2017-05-27] MEDS ORDERED: Ipratropium/Albuterol Neb 3 ML ONE (17:46)
--- NOTE | 2017-05-27 18:16 | Operative Note ---
Date of procedure: 05/27/17 Pre-op diagnosis: Basicervical fracture right hip Post-op diagnosis: same Procedure: #1. Intramedullary nailing right hip Implants: Synthes 10 mm x 170 mm x 130 degree angle TFNA, a 95 mm x 11 mm TFNA helical blade and a 38 mm x 5.0 mm distal locking screw Complications: None Anesthesia: MARQUISE Surgeon: Bandar Patel Estimated blood loss (cc): 150 Specimen: None Condition: stable (None) Disposition: PACU Procedure in Detail: Gross findings: Preoperative x-rays revealed a very low neck/high intertrochanteric type fracture on this 86-year-old gentleman. Absolute delineation was difficult due to patient's mentation and difficulty in obtaining x-rays. Once the patient was under anesthesia and on the fracture table this was noted to be a basicervical type fracture with extension just above the lesser trochanter. The decision was made to proceed with IM nailing of this fracture to allow for immediate full weightbearing ambulation and to minimize the risks with insufficient fixation with percutaneous screws or the risks and complications associated with a hip hemiarthroplasty. The fracture was reduced into near anatomic position and then stabilized with a trochanteric femoral nail with excellent fixation and implant position as verified with multiplane FLUOROSCOPY. No complicating features were encountered. Procedure: Patient is stating the operating room and administered a general anesthesia while on the hospital bed. Patient was then transferred to the [facility] fracture table. Right lower extremity was placed in longitudinal traction left lower extremity was positioned in harm's way in the well leg archer. All pressure points were well-padded. Fluoroscopy was now introduced and utilized to guide the initial reduction which is obtained with a combination of traction minimal internal rotation and slight adduction. Once fracture was reduced the hip was prepped and draped in normal standard fashion for surgery. An approximately 4-5 cm incision was created just above the level of the greater trochanter. Dissection was carried through the septated tissue down the level of fascia which was split and access to the tip of the trochanter was obtained. Guidewire was placed. The trochanter was then opened up with the coring reamer. The selected nail was then placed upon the insertion jig. There was then passed over top of the guidewire passed down the canal and a guidewire was removed. The nail was seated in appropriate position. At this time the 130 degree degree guide was used to created incision and then the guide was placed up against the lateral cortex. Guide pin was placed into the femoral head in a central position as verified with fluoroscopy. Length of the pin was measured and a 95 was selected. Head and neck were then reamed. The helical blade was then placed over top of the guidewire and then locked proximally. Fracture was then compressed with excellent fixation and positioning noted. The guidewire was then removed. The distal locking screw was then placed and verified to be well positioned with fluoroscopy. Final fluoroscopic views are taken in multiple planes verifying reduction of the fracture and placement of the implants. Wounds now closed after irrigation. Wounds were closed with #1 Vicryl in the fascia followed by #1 Vicryl in the deep tissue and then 2-0 undyed Vicryl placed in an inverted interrupted manner medius A and and skin approximation with a running septic stitch of 2-0 strata fix. Skin glue was now applied. Operative foam was then applied. Patient was then awakened from anesthesia extubated and transported to the postanesthesia care unit in stable and satisfactory condition. All sponge and needle evidence for counts are correct. No specimens were sent for pathology.
--- NOTE | 2017-05-27 18:30 | Anesthesia Evaluation Post Op ---
Date of Encounter: 05/27/17 Time of Encounter: 18:29 - Vital Signs Vital Signs: Vital Signs/O2 Sat, Most Current Temp Pulse Resp BP Pulse Ox 99.5 F 98 16 118/55 91 05/27/17 18:14 05/27/17 18:24 05/27/17 18:24 05/27/17 18:24 05/27/17 18:24 - Lungs Lungs: Clear Ascult./Percussion - Airway Airway: Non-obstructed - Cardiovascular Regular Rate - Mental Status Mental Status: Confused, Baseline Status - Nausea Vomiting Nausea Vomiting: Not Present - Hydration Hydration: NPO, Yanes catheter Notes: 05/27/17 18:29 I have assessed this patient and find they meet discharge criteria. - Discharge PostOp Status: Transfer Patient to floor
[2017-05-27] MEDS ORDERED: Ondansetron 4 MG/2 ML VIAL IVP PRN (18:51)
[2017-05-27] MEDS ORDERED: *HR* HYDROcodone/Acet 5/325 mg TABLET PO PRN (18:51)
[2017-05-27] MEDS ORDERED: Acetaminophen 325 MG TABLET PO PRN (18:51)
[2017-05-27] MEDS ORDERED: 0.9 % Sodium Chloride 1,000 ML IVC SCH (18:51)
[2017-05-27] MEDS: Ringers Solution, Lactated 1,000 ML IVC SCH (21:44)
[2017-05-27] MEDS: Bisacodyl 10 MG RECTAL SUPPOSITORY RC SCH (21:59)
[2017-05-28] MEDS: ceFAZolin 2,000 MG in D5% in Water 100 ML IVPB SCH ×2 (00:54→08:34)
[2017-05-28] MEDS ORDERED: *HR* LORazepam 2 MG/ML VIAL IM STA (02:48)
--- NOTE | 2017-05-28 02:54 | Event Note ---
Date of Encounter: 05/28/17 Time of Encounter: 02:50 Assessed at bedside due to delirium, combativeness and aggressiveness. patient pulled IV line out. - Had returned from OR earlier today, has history of dementia and confusion but not redirectable today - On exam, no cardioresp distress, but agitated and trying to get out of bed. Right hip incision site without erythema or hematoma formation. Abdomen is soft , not tender, no guarding or rebound, no other obvious signs of trauma or pain but unable to give trial of IV analgesics for post-op pain as a cause of delirium due to loss of IV access. Patient is allergic to haloperidol and risperidone. To ensure patient's and staff's safety, will administer ativan 0.5 mg IM, then attempt to obtain IV access for proper pain management. Once urinary retention is ruled out, may remove Yanes. Continue redirection.
[2017-05-28] MEDS: *HR* Morphine 2 MG/ML SYRINGE IVP PRN ×2 (03:23→12:50)
[2017-05-28] MEDS: *HR* Enoxaparin 30 MG/0.3 ML SYRINGE SQ SCH ×2 (06:04→17:14)
[2017-05-28] MEDS ORDERED: 0.9 % Sodium Chloride 250 ML IVC ONE (08:30)
[2017-05-28 09:03] LABS: Basophils % 0.1 %; Eosinophils % 0.4 %; Hematocrit 40.2 % (37.5-50.1); Immature Granulocytes % 0.5 % (0-4); Lymphocytes # 0.7 K/mcL (0.6-4.6); Mean Corpuscular HGB Conc 32.1 g/dL (31.6-35.5); Mean Corpuscular Hemoglobin 28.2 pg (28.0-33.3); Mean Corpuscular Volume 87.8 fL (83.0-100.0); Mean Platelet Volume 10.2 fL (9.4-12.4); Monocytes # 0.9 K/mcL (0.0-1.3); Monocytes % 11.3 %; Neutrophils # 6.7 K/mcL (1.6-8.9); Platelet Count 123 K/mcL (140-400); Red Blood Count 4.58 M/mcL (4.19-5.50); Red Cell Distribution Width 14.8 % (11.5-14.5); Segmented Neutrophils % 79.7 %
[2017-05-28 09:08] LABS: Hemoglobin 12.9 g/dL (12.9-16.9)
[2017-05-28 09:19] LABS: BUN/Creatinine Ratio 13 (6-26); Blood Urea Nitrogen 14 mg/dL (8-26); Calcium 8.4 mg/dL (8.6-10.8); Carbon Dioxide 23 mEq/L (19-29); Chloride 111 mEq/L (98-109); Glucose 101 mg/dL (70-99); Osmolality,Calculated 291 (280-300); Potassium 3.8 mEq/L (3.5-4.5); Sodium 140 mEq/L (136-145); eGFR For African Americans > 60 (> 60); eGFR For Non-African Americans > 60 (> 60)
--- NOTE | 2017-05-28 12:05 | Internal Med Progress Note ---
Date of Encounter: 05/28/17 Time of Encounter: 08:10 - Assessment and plan (1) Femoral neck fracture Current Visit: Yes Status: Acute Assessment and plan: status post right hip intramedullary nailing. Continue physical therapy. Pain control. Patient will need placement to skilled rehabilitation or group home at time of discharge. Continue DVT prophylaxis. Qualifiers: Encounter type: initial encounter Fracture type: closed Laterality: right Qualified Code(s): S72.001A - Fracture of unspecified part of neck of right femur, initial encounter for closed fracture (2) COPD (chronic obstructive pulmonary disease) Current Visit: Yes Status: Chronic Assessment and plan: Not in acute exacerbation. Continue bronchodilators as needed Qualifiers: COPD type: unspecified COPD Qualified Code(s): J44.9 - Chronic obstructive pulmonary disease, unspecified (3) Dementia Current Visit: Yes Status: Chronic Assessment and plan: Chronic. Episodes of delirium. We will treat with Ativan as he has responded well to it and he is allergic to Haldol and risperidone. Qualifiers: Dementia type: unspecified type Dementia behavioral disturbance: without behavioral disturbance Qualified Code(s): F03.90 - Unspecified dementia without behavioral disturbance (4) History of stroke Current Visit: Yes Status: Chronic (5) Hypertension Current Visit: Yes Status: Chronic Assessment and plan: Not currently on any antihypertensives. Blood pressure has been on the lower side this morning. We will continue to monitor vital signs and blood pressure closely. Continue gentle hydration Qualifiers: Hypertension type: essential hypertension Qualified Code(s): I10 - Essential (primary) hypertension - Subjective Interval history: Patient lying in bed. Awakes but does not answer questions. Has not been moaning in pain today. Underwent surgery yesterday and has been doing well postprocedure. He did develop episodes of agitation last night and was given Ativan as he was at risk of harm to self and others. He was able to sleep after that was given. - Constitutional Vitals: Temp Pulse Resp BP Pulse Ox 99.7 F H 73 16 92/45 95 05/28/17 11:18 05/28/17 11:18 05/28/17 11:18 05/28/17 11:18 05/28/17 11:18 General appearance: Present: A&O X 0. Absent: answers questions appropriately - Neck Neck exam general surgery: Present: supple, trachea midline. Absent: lymphadenopathy - Respiratory Respiratory exam: Present: CTAB. Absent: accessory muscle use, rales, rhonchi, wheezes - Cardiovascular Cardiovascular exam: Present: RRR, +S1, +S2. Absent: diastolic murmur, gallop, rubs, systolic murmur Internal Medicine: Result - Labs CBC & Chem 7: 05/28/17 08:43 05/28/17 08:43 Labs: Short CBC 05/28/17 Range/Units 08:43 WBC 8.3 (4.3-11.1) K/mcL Hgb 12.9 D (12.9-16.9) g/dL Hct 40.2 (37.5-50.1) % Plt Count 123 L (140-400) K/mcL Neutrophils # 6.7 (1.6-8.9) K/mcL BMP 05/28/17 08:43 Sodium 140 Potassium 3.8 Chloride 111 H Carbon Dioxide 23 BUN 14 Creatinine 1.08 Glucose 101 H Calcium 8.4 L - ABG Interpretation ABG results: PT/INR, D-dimer PT 10.1 Seconds (9.4-12.1) 05/26/17 00:30 - Impressions Impressions Fluoroscopy 05/27/17 16:00 IMPRESSION: Intraprocedural fluoroscopic spot images as above. See separate procedure report for more information. D/ / 05/27/2017 17:38:44 Leo Islas MD / sri Interpreting Provider: Leo Islas MD Hip X-Ray 05/27/17 16:00 IMPRESSION: Intraprocedural fluoroscopic spot images as above. See separate procedure report for more information. D/ / 05/27/2017 17:38:44 Leo Islas MD / sri Interpreting Provider: Loe Islas MD Consult Discharge Plan - Plan [facility]errals: [facility] [Primary Care Provider] -
[2017-05-28] MEDS ORDERED: Acetaminophen IV 1,000 MG/100 ML INFUS..BTL IVPB PRN (12:10)
[2017-05-28] MEDS: D5% in 0.45% NACL 1,000 ML IVC SCH (12:49)
--- NOTE | 2017-05-28 13:42 | Orthopedics Progress Note ---
Date of Encounter: 05/28/17 Time of Encounter: 13:39 Subjective Principal diagnosis: Right hip fracture Interval history: 05/28/2017. Patient is postop day #1 from IM nailing of a right basicervical hip fracture. He is resting quietly at this time. He reportedly was able to stand at bedside with therapy. Vital signs are stable. Patient is afebrile (99.7). Dressings are dry with only minor spotting on the superior incision. Minor edema in the leg. Hemoglobin is 12.9. Platelet count is 123 Impression: POD #1 IM nailing right hip Recommendation: Orthopedic status is stable. Patient can be weightbearing as tolerated on the right lower extremity. Patient can shower as long as dressings are intact. Patient can be discharged to the [place] or other skilled facility whenever arrangements can be made. Will need follow-up with me in 2-3 weeks' time. Objective Vital signs: Vital Signs Temp Pulse Resp BP Pulse Ox 05/28/17 13:32 17 98/50 96 05/28/17 11:18 99.7 F H 73 16 92/45 95 05/28/17 09:32 91 05/28/17 08:39 91 05/28/17 08:32 89/43 05/28/17 07:47 98.6 F 83 18 81/46 86 05/28/17 05:27 98.6 F 80 18 99/48 92 05/27/17 23:41 98.6 F 93 18 104/63 96 05/27/17 21:45 97.4 F L 89 20 111/56 94 05/27/17 19:45 99.1 F 95 18 109/54 90 05/27/17 19:15 99.5 F 96 20 113/48 89 05/27/17 19:00 91 05/27/17 18:52 98.4 F 99 20 117/60 90 05/27/17 18:34 99.5 F 97 18 118/57 91 05/27/17 18:24 98 16 118/55 91 05/27/17 18:14 99.5 F 96 16 123/59 93 05/27/17 18:04 93 18 139/62 95 05/27/17 17:54 92 20 139/66 93 05/27/17 17:44 98.4 F 90 20 127/69 93 Intake and Output 05/27/17 05/28/17 05/28/17 23:59 07:59 15:59 Intake Total 100 / 100 100 / 100 250 / 250 Output Total 800 / 800 300 / 300 Balance -700 / -700 -200 / -200 250 / 250 Intake: IV Fluids 100 / 100 100 / 100 250 / 250 0.9 % Sodium Chloride 250 250 / 250 ML @ 937.5 mls/hr IVC . Q16M ONE Rx#:[id number] Ancef 2,000 MG In 100 / 100 100 / 100 Dextrose 5% 100 ML @ 200 mls/hr IVPB Q8HR VICTORIA Rx#: [id number] Output: Urine 300 / 300 Estimated Blood Loss 150 / 150 Urine Amount (Catheter) 500 / 500 Catheter 150 / 150 Other: Blood Glucose* 167 127 105 - Labs CBC & BMP: 05/28/17 08:43 05/28/17 08:43 Labs: Abnormal lab results RDW 14.8 % (11.5-14.5) H 05/28/17 08:43 Plt Count 123 K/mcL (140-400) L 05/28/17 08:43 APTT 25.3 Seconds (26.0-36.0) L 05/26/17 00:30 Chloride 111 mEq/L (98-109) H 05/28/17 08:43 Glucose 101 mg/dL (70-99) H 05/28/17 08:43 POC Glucose 127 (58-89) H 05/28/17 05:45 Calcium 8.4 mg/dL (8.6-10.8) L 05/28/17 08:43 Albumin/Globulin Ratio 1.0 (1.1-2.2) L 05/26/17 00:30 Consult Discharge Plan - Plan [facility]errals: [facility] [Primary Care Provider] -
[2017-05-28] MEDS ORDERED: *HR* LORazepam 2 MG/ML VIAL IVP ONE ×2 (16:58→22:26)
[2017-05-28] MEDS ORDERED: *HR* LORazepam 2 MG/ML VIAL ONE (17:02)
[2017-05-28] MEDS: Ringers Solution, Lactated 1,000 ML IVC SCH (17:16)
[2017-05-28] MEDS: Bisacodyl 10 MG RECTAL SUPPOSITORY RC SCH (22:04)
[2017-05-29] MEDS: *HR* Morphine 2 MG/ML SYRINGE IVP PRN ×3 (00:21→10:47)
[2017-05-29] MEDS: D5% in 0.45% NACL 1,000 ML IVC SCH (01:36)
[2017-05-29] MEDS: *HR* Enoxaparin 30 MG/0.3 ML SYRINGE SQ SCH (05:54)
--- NOTE | 2017-05-29 09:43 | Electrocardiograph Report ---
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
--- NOTE | 2017-05-29 11:03 | Discharge Summary ---
Date of Encounter: 05/29/17 Time of Encounter: 11:00 - Discharge Diagnosis (1) Femoral neck fracture Priority: Primary Status: Acute Qualifiers: Encounter type: initial encounter Fracture type: closed Laterality: right Qualified Code(s): S72.001A - Fracture of unspecified part of neck of right femur, initial encounter for closed fracture (2) COPD (chronic obstructive pulmonary disease) Priority: Secondary Status: Chronic Qualifiers: COPD type: unspecified COPD Qualified Code(s): J44.9 - Chronic obstructive pulmonary disease, unspecified (3) Dementia Priority: Secondary Status: Chronic Qualifiers: Dementia type: unspecified type Dementia behavioral disturbance: without behavioral disturbance Qualified Code(s): F03.90 - Unspecified dementia without behavioral disturbance (4) History of stroke Priority: Secondary Status: Chronic (5) Hypertension Priority: Secondary Status: Chronic Qualifiers: Hypertension type: essential hypertension Qualified Code(s): I10 - Essential (primary) hypertension - Discharge Medications Prescriptions: LORazepam [Ativan] 0.5 mg PO BID PRN #14 PRN Reason: Agitation Morphine Oral CONC [Roxanol] 0.25 ml PO Q4H PRN #30 ml PRN Reason: Breakthrough Pain Tramadol HCl [Ultram] 25 mg PO QID PRN #14 PRN Reason: Moderate Pain Home Medications: Clopidogrel [Plavix] 75 mg PO DAILY 05/04/15 [History] Cyanocobalamin (B-12) 100 mcg PO DAILY 05/04/15 [History] Sertraline HCl [Zoloft] 50 mg PO DAILY 05/04/15 [History] Acetaminophen [Tylenol] 650 mg PO QAM AND QHS 05/26/17 [History] Acetaminophen [Tylenol] 975 mg PO Q8H PRN 05/26/17 [History] Aspirin Enteric Coated [Aspirin EC] 81 mg PO DAILY 05/26/17 [History] Atorvastatin Calcium [Lipitor] 20 mg PO HS 05/26/17 [History] Bisacodyl [Dulcolax] 10 mg RC Q48H PRN 05/26/17 [History] Cholecalciferol (D-3) [Vitamin D] 3,000 unit PO DAILY 05/26/17 [History] Ipratropium/Albuterol Sulfate [Combivent Respimat Inhal [place]] 1 puff IH QID PRN 05/26/17 [History] Magnesium Hydroxide [Milk of Magnesia] 2,400 mg PO DAILY PRN 05/26/17 [History] Memantine HCl 10 mg PO BID 05/26/17 [History] Menthol/Zinc Oxide [Calmoseptine Ointment Packet] 1 appl TP BID PRN 05/26/17 [ History] Methyl Salicylate/Menthol [Arthritis Hot Pain Relief Crm] 1 appl TP BID [History] Multivitamin-Min/Iron/FA/Vit K [Multi-Day Plus Minerals Tablet] 1 each PO DAILY 05/26/17 [History] Naproxen [EC-Naprosyn] 375 mg PO BID PRN 05/26/17 [History] Omeprazole [PriLOSEC] 20 mg PO DAILY 05/26/17 [History] Ondansetron HCl [Zofran] 4 mg PO TID PRN 05/26/17 [History] Quetiapine Fumarate [Seroquel] 75 mg PO QAM 05/26/17 [History] Quetiapine Fumarate [Seroquel] 150 mg PO HS 05/26/17 [History] Sennosides/Docusate Sodium [Senna Plus] 2 each PO BID 05/26/17 [History] Enoxaparin [Lovenox] 30 mg SQ Q12HR 10 Days 05/29/17 [Rx] LORazepam [Ativan] 0.5 mg PO BID PRN #14 05/29/17 [Rx] Morphine Oral CONC [Roxanol] 0.25 ml PO Q4H PRN #30 ml 05/29/17 [Rx] Tramadol HCl [Ultram] 25 mg PO QID PRN #14 05/29/17 [Rx] Allergies/Adverse Reactions: 3 Allergy/AdvReac Type Severity Reaction Status Date / Time haloperidol Allergy Confusion Verified 05/07/15 15:31 risperidone AdvReac See Verified 05/26/17 20:59 Comments Procedures/tests Complete & Pending: Procedures Performed prior 72 hours Category Date Time Status ECG 12 lead ECG [ECG] Routine Y 05/26/17 14:57 Completed EV echocardiogram Routine Y 05/26/17 17:50 Completed Date of admission: 05/26/17 05:20 [facility] care physician: [facility] Consults: 05/26/17 06:48 Consult to Orthopedic Surgery [CONS] Routine Consulting Provider: Orthopedic and Sports Medicine Reason for Consult: Right femoral neck fracture Call Completed: Yes 05/26/17 07:40 Consult to Palliative Care [CONS] Routine Comment: Consulting Provider: Palliative Care Luiza Reason for Consult: Pain control/ Goals of care Call Completed: Yes 05/26/17 10:32 Consult to Nutrition [CONS] Routine Comment: Consulting Provider: NUTRITION Reason for Dietary Consult: MST Score 05/26/17 16:50 Consult to Speech Therapy [CONS] Routine Comment: Evaluate, develop and implement POC Reason for Consult: AMS Call Completed: Yes 05/27/17 18:51 Consult to Occupational Therapy [CONS] Routine Comment: Evaluate, develop and implement POC Reason for Consult: ADLs Consult to Physical Therapy [CONS] Routine Comment: Evaluate, develop and implement POC Reason for Consult: Hip Fx Consult to Radio Station Audio Engineer [CONS] Routine Reason for SW Consult: D/C Discharging clinician: Gabe Mayer Anticipated date of discharge: 05/29/17 - Patient Status Disposition: Transfer SNF Condition: Fair Functional capacity at discharge: bed bound Overall status at discharge: patient is not back to baseline - Discharge Instructions Follow Up With: Bandar Patel DO [Non-Partnered Physician] - 06/12/17 1:00 pm (in 2-3 weeks) [facility] [Primary Care Provider[facility] - (in 1-2 weeks) Additional Instructions: WEIGHT BEARING TOLERATED. - Diet and Activity Activity: as per physical therapy Diet: diabetic diet (per speech therapy evaluation), low fat, low cholesterol, low salt diet Hospital course: Mr. Mackey is a 86 year old male patient with history of chronic dementia was sent over from the [place] [facility] after a fall resulting in right femoral neck fracture. Patient has been nonverbal through most of his stay here. He has been moaning intermittently in pain. He was evaluated by orthopedics and given different options with him surgical management and conservative management. As the family opted for surgical management to stabilize joint, patient underwent intramedullary hip nailing on 05/27/17. Since then he has been monitored closely in the hospital. With his underlying dementia, it has been hard to communicate with the patient and he has been receiving pain medications as needed. He has not been able to eat due to risk of aspiration and speech therapy was not able to be completed due to his underlying dementia. At this time he is not cleared for discharge by orthopedics. We have discussed this case with the [facility] and they have agreed to take the patient for continued rehabilitation as they know his condition very well. Patient will be discharged there at this time. - Time Spent with Patient Total time spent providing and/or coordinating discharge services: Greater than 30 minutes (35 min) - Constitutional Vitals: Temp Pulse Resp BP Pulse Ox 98.3 F 74 18 114/57 95 05/29/17 07:01 05/29/17 07:01 05/29/17 07:01 05/29/17 07:01 05/29/17 04:23 General appearance: Present: A&O X 0. Absent: answers questions appropriately - Respiratory Respiratory exam: Present: CTAB. Absent: accessory muscle use, rales, rhonchi, wheezes - Cardiovascular Cardiovascular exam: Present: RRR, +S1, +S2. Absent: diastolic murmur, gallop, rubs, systolic murmur - GI/Abdominal GI/Abdominal exam: Present: normal bowel sounds, soft, no peritoneal signs. Absent: distended, tenderness - Extremities Exam Extremities exam: Present: tenderness (right hip), warm, radial pulses palpable and symmetrical. Absent: calf tenderness, cyanotic, pedal edema - Neurological Exam Neurological exam: Present: CN II-XII intact, oriented X3, no focal deficits. Absent: facial droop, speech deficit
[2017-05-29 11:13] VITALS: BP 104/49
--- NOTE | 2017-05-29 11:19 | Physician Discharge Referral ---
ExtendedCare Referral Info Provider in Charge after Transfer: PCP Institutional Level of Care: Skilled - Diagnosis (1) Femoral neck fracture Priority: Primary Status: Acute (2) COPD (chronic obstructive pulmonary disease) Priority: Secondary Status: Chronic (3) Dementia Priority: Secondary Status: Chronic (4) History of stroke Priority: Secondary Status: Chronic (5) Hypertension Priority: Secondary Status: Chronic Prognosis: Poor Aware of Diagnosis: Patient, Family Aware of Prognosis: Patient - Transfer Medications Prescriptions: LORazepam [Ativan] 0.5 mg PO BID PRN #14 PRN Reason: Agitation Morphine Oral CONC [Roxanol] 0.25 ml PO Q4H PRN #30 ml PRN Reason: Breakthrough Pain Tramadol HCl [Ultram] 25 mg PO QID PRN #14 PRN Reason: Moderate Pain Home Medications: Clopidogrel [Plavix] 75 mg PO DAILY 05/04/15 [History] Cyanocobalamin (B-12) 100 mcg PO DAILY 05/04/15 [History] Sertraline HCl [Zoloft] 50 mg PO DAILY 05/04/15 [History] Acetaminophen [Tylenol] 650 mg PO QAM AND QHS 05/26/17 [History] Acetaminophen [Tylenol] 975 mg PO Q8H PRN 05/26/17 [History] Aspirin Enteric Coated [Aspirin EC] 81 mg PO DAILY 05/26/17 [History] Atorvastatin Calcium [Lipitor] 20 mg PO HS 05/26/17 [History] Bisacodyl [Dulcolax] 10 mg RC Q48H PRN 05/26/17 [History] Cholecalciferol (D-3) [Vitamin D] 3,000 unit PO DAILY 05/26/17 [History] Ipratropium/Albuterol Sulfate [Combivent Respimat Inhal [place]] 1 puff IH QID PRN 05/26/17 [History] Magnesium Hydroxide [Milk of Magnesia] 2,400 mg PO DAILY PRN 05/26/17 [History] Memantine HCl 10 mg PO BID 05/26/17 [History] Menthol/Zinc Oxide [Calmoseptine Ointment Packet] 1 appl TP BID PRN 05/26/17 [ History] Methyl Salicylate/Menthol [Arthritis Hot Pain Relief Crm] 1 appl TP BID [History] Multivitamin-Min/Iron/FA/Vit K [Multi-Day Plus Minerals Tablet] 1 each PO DAILY 05/26/17 [History] Naproxen [EC-Naprosyn] 375 mg PO BID PRN 05/26/17 [History] Omeprazole [PriLOSEC] 20 mg PO DAILY 05/26/17 [History] Ondansetron HCl [Zofran] 4 mg PO TID PRN 05/26/17 [History] Quetiapine Fumarate [Seroquel] 75 mg PO QAM 05/26/17 [History] Quetiapine Fumarate [Seroquel] 150 mg PO HS 05/26/17 [History] Sennosides/Docusate Sodium [Senna Plus] 2 each PO BID 05/26/17 [History] Enoxaparin [Lovenox] 30 mg SQ Q12HR 10 Days 05/29/17 [Rx] LORazepam [Ativan] 0.5 mg PO BID PRN #14 05/29/17 [Rx] Morphine Oral CONC [Roxanol] 0.25 ml PO Q4H PRN #30 ml 05/29/17 [Rx] Tramadol HCl [Ultram] 25 mg PO QID PRN #14 05/29/17 [Rx] Allergies/Adverse Reactions: 3 Allergy/AdvReac Type Severity Reaction Status Date / Time haloperidol Allergy Confusion Verified 05/07/15 15:31 risperidone AdvReac See Verified 05/26/17 20:59 Comments - Respiratory Orders Smoking Cessation: Smoking cessation has been advised. For more information, call the [employer] Quit Line at 0-600-GOVX-NOW. - Advance Directives Code Status: DNR-Comfort Care - Mobility Orders Other (per PT Eval) - Rehabiliation Orders Rehab Potential: Poor Rehab Orders: Evaluation for Physical Therapy, Evaluation for Occupational Therapy - Diet Orders Pureed (per Speech therapy evaluation) CERTIFICATION: I certify that the transfer of the above named patient to an Extended Care Facility is necessary for the continuing treatment of the diagnosis listed. The above information is true and accurate reflection of patient's current condition. Confidential - Redisclosure prohibited without a patient's written consent.
--- NOTE | 2017-05-29 13:46 | Electrocardiograph Report ---
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
== END 2017-05-29 13:00 | DRG 482 ==
LOC: EMEROO 23:52 → 3NENU 05-26 05:20
PROVIDERS: ADMIT Internal Medicine Hematology & Oncology; ATTEND Internal Medicine